=== PATIENT | male | born 1980 | race Caucasian/White ===

== ENCOUNTER 2017-10-22 15:14 | Inpatient (IN) ==
[2017-10-22 16:00] LABS: Bilirubin,Urine Negative (Negative); Blood,Urine Negative (Negative); Clarity,Urine Clear (Clear); Color,Urine Yellow (Yellow); Glucose,Urine (UA) Normal (Normal); Ketones,Urine Negative (Negative); Leukocyte Esterase,Urine Negative (Negative); Nitrite,Urine Negative (Negative); Protein,Urine Negative (Neg-Trace); Specific Gravity,Urine 1.014 (1.010-1.025); Urobilinogen,Urine Normal (Normal)
[2017-10-22 16:05] LABS: Amphetamine Screen,Urine Negative ng/mL (Cutoff=1000); Barbiturate Screen,Urine Negative ng/mL (Cutoff=200); Benzodiazepines Screen,Urine Positive ng/mL (Cutoff=200); Cannabinoid Screen,Urine Positive ng/mL (Cutoff = 50); Cocaine Screen,Urine Negative ng/mL (Cutoff= 300); Opiate Screen,Urine Negative ng/mL (Cutoff=300); Phencyclidine Screen,Urine Negative ng/mL (Cutoff=25)
[2017-10-22 16:25] LABS: Basophils % 0.5 %; Eosinophils # 0.1 K/mcL (0.0-0.6); Eosinophils % 1.5 %; Hematocrit 47.6 % (37.5-50.1); Hemoglobin 15.6 g/dL (12.9-16.9); Immature Granulocytes % 0.4 % (0-4); Lymphocytes # 2.4 K/mcL (0.6-4.6); Lymphocytes % 27.9 %; Mean Corpuscular HGB Conc 32.8 g/dL (31.6-35.5); Mean Corpuscular Hemoglobin 30.6 pg (28.0-33.3); Mean Corpuscular Volume 93.3 fL (83.0-100.0); Mean Platelet Volume 11.7 fL (9.4-12.4); Monocytes # 0.4 K/mcL (0.0-1.3); Monocytes % 4.5 %; Neutrophils # 5.6 K/mcL (1.6-8.9); Platelet Count 190 K/mcL (140-400); Red Cell Distribution Width 12.5 % (11.5-14.5); Segmented Neutrophils % 65.2 %
[2017-10-22 16:31] LABS: BUN/Creatinine Ratio 12 (6-26); Blood Urea Nitrogen 10 mg/dL (6-20); Calcium 9.2 mg/dL (8.6-10.3); Carbon Dioxide 29 mEq/L (23-29); Chloride 107 mEq/L (98-107); Glucose 77 mg/dL (70-105); Osmolality,Calculated 286 (280-300); Potassium 3.7 mEq/L (3.5-5.1); Sodium 139 mEq/L (136-145); eGFR For African Americans > 60 (> 60); eGFR For Non-African Americans > 60 (> 60)
[2017-10-22 16:36] LABS: Acetaminophen < 1.0 mcg/mL (10-30); Ethanol < 10 mg/dL (0-10); Salicylate < 5.0 mg/dL (15.0-30.0)
--- NOTE | 2017-10-22 17:35 | Emergency Department Note ---
Disposition Clinical Impression: Suicidal ideation Depression Qualifiers: Depression Type: unspecified Qualified Code(s): F32.9 - Major depressive disorder, single episode, unspecified Disposition: Admitted As Inpatient Condition: Good Referrals: NONE,PCP [Primary Care Provider] - Forms: ED Satisfaction Letter Time of Disposition: 19:00 Psych HPI - General Chief Complaint: ED Psychiatric Symptoms Stated Complaint: SI/medication issues Time Seen by Provider: 10/22/17 15:39 Source: patient Mode of arrival: ambulatory Limitations: no limitations Nursing Notes Reviewed: Yes Vital Signs Reviewed: Yes - History of Present Illness HPI Narrative: Patient presents emergency room for evaluation of suicidal ideation. Patient has been significantly depressed and not taking his medications as prescribed. Patient decided to come to the emergency room today for help. Pt complaint: suicidal ideation, feels depressed Onset (ago): day(s) Duration: constant History of similar episodes: Yes Improves with: medication Worsens with: other Context: not taking psychiatric medications, significant life stressor Alleged intoxication: No Associated Psychiatric Symptoms: depression, suicidal ideation Associated symptoms: Reports: denies other symptoms Traumatic symptoms: denies traumatic injury Treatments prior to arrival: none Self harm or harm to others: admits thoughts of self harm, has plan - Related Data Home Medications Medication Instructions Recorded Confirmed ALPRAZolam [Xanax 1 MG Tablet] 1 mg PO QID 03/14/16 04/10/16 Escitalopram [Lexapro] 20 mg PO QID 03/14/16 04/10/16 Esomeprazole Magnesium [Nexium] 40 mg PO BID 03/14/16 04/10/16 Gabapentin [Gabapentin] 800 mg PO QID 03/14/16 04/10/16 Ibuprofen [Motrin] 800 mg PO QID PRN 03/14/16 04/10/16 Mirtazapine [Mirtazapine] 15 mg PO HS 03/14/16 04/10/16 Tizanidine HCl [Tizanidine HCl] 4 mg PO BID PRN 03/14/16 04/10/16 Previous Rx's Medication Instructions Recorded Cyclobenzaprine [Flexeril] 10 mg PO TID PRN #15 tablet 04/10/16 Naproxen [Naprosyn] 500 mg PO BID PRN #30 tablet 04/10/16 Allergies Allergy/AdvReac Type Severity Reaction Status Date / Time cephalexin [From Keflex] Allergy Anaphylaxis Verified 10/22/17 15:30 sulfamethoxazole Allergy Swelling Verified 10/22/17 15:30 [From Bactrim] of Lip/Tongue/Throat trimethoprim [From Bactrim] Allergy Swelling Verified 10/22/17 15:30 of Lip/Tongue/Throat All systems ED: reviewed and negative except as stated. Review of Systems: As Per HPI Constitutional: Denies: fever Cardiovascular: Denies: chest pain, palpitations, dyspnea on exertion Respiratory: Denies: dyspnea, wheezes Gastrointestinal: Denies: abdominal pain Musculoskeletal: Denies: back pain, neck pain Neurological: Denies: headache Endocrine: Denies: fatigue Past Medical History - Past Medical History Attestation: Yes The following information was validated with the patient. Source: patient Medical history: Reports: GERD Psychiatric history: Reports: anxiety, depression, prior suicide attempt, previous psychiatric hospitalization - Social History Smoking Status: Current every day smoker Smokeless Tobacco Status: Yes Alcohol use: Reports: heavy, recent Drug use: Reports: marijuana Physical Exam - General Limitations: no limitations General appearance: alert - Head Head exam: atraumatic, normocephalic, normal inspection - Neck Neck exam: Present: normal inspection, full ROM, trachea midline - Respiratory Respiratory exam: Present: normal lung sounds bilaterally - Cardiovascular Cardiovascular exam: Present: regular rate, normal rhythm, normal heart sounds - Back Exam Back exam: Present: normal inspection, full ROM. Absent: tenderness - Neurological Exam Neurological exam: Present: alert, oriented X3, CN II-XII intact, normal gait - Psychiatric Psychiatric exam: Present: normal affect, depressed, suicidal ideation - Skin Skin exam: Present: warm, dry, intact, normal color Course Course Narrative: Patient seen and examined the time of arrival. See history of present illness. 36-year-old male presents emergency room with suicidal ideation. Patient is planned on to grow much medications to kill himself. He took several Ativan prior to coming in secondary to some stress. Patient says it is been trying to take his home medications with abdomen the not helping related to typically do for his depression. Patient says that he has significant life stressor including the possibility of losing his house. Patient denies any other medical issues this time. No chest pain or shortness of breath no fevers chills nausea vomiting or diarrhea. Medical clearance to be completed. Patient with psychiatric evaluation completed after that. No acute findings on physical exam. Patient is resting comfortably in the bed with clear lungs hepatojugular another set to trauma history. - Reevaluation(s) Reevaluation #1: Medical clearance completed at this time. Patient does have benzodiazepine and marijuana system as he disclosed. Patient will be evaluated by the psychiatric team at this time. Time: 17:39 Reevaluation #2: Patient will be admitted to psychiatric floor at this time. Time: 18:48 Vital Signs Temperature 97.9 F 10/22/17 15:32 Pulse Rate 85 10/22/17 15:32 Respiratory Rate 20 10/22/17 15:32 Blood Pressure 119/78 10/22/17 15:32 O2 Sat by Pulse Oximetry 99 10/22/17 15:32 Temperature 97.9 F 10/22/17 15:32 Pulse Rate 85 10/22/17 15:32 Respiratory Rate 20 10/22/17 15:32 Blood Pressure 119/78 10/22/17 15:32 O2 Sat by Pulse Oximetry 99 10/22/17 15:32 Oxygen Delivery Oxygen Delivery Room Air Psych - MDM Narrative Medical decision making narrative: Suicidal Ideation, depression - Medical Records Medical records reviewed: Yes I reviewed the patient's medical records. - Lab Data Lab results reviewed: Yes I reviewed the patient's lab results. Result diagrams: 10/22/17 15:56 10/22/17 15:56 Lab Results 10/22/17 10/22/17 10/22/17 Range/Units 15:45 15:45 15:56 WBC 8.5 (4.3-11.1) K/mcL RBC 5.10 (4.19-5.50) M/mcL Hgb 15.6 (12.9-16.9) g/dL Hct 47.6 (37.5-50.1) % MCV 93.3 (83.0-100.0) fL MCH 30.6 (28.0-33.3) pg MCHC 32.8 (31.6-35.5) g/dL RDW 12.5 (11.5-14.5) % Plt Count 190 (140-400) K/mcL MPV 11.7 (9.4-12.4) fL Immature Gran % 0.4 (0-4) % Seg Neutrophils % 65.2 % Lymphocytes % 27.9 % Monocytes % 4.5 % Eosinophils % 1.5 % Basophils % 0.5 % Neutrophils # 5.6 (1.6-8.9) K/mcL Lymphocytes # 2.4 (0.6-4.6) K/mcL Monocytes # 0.4 (0.0-1.3) K/mcL Eosinophils # 0.1 (0.0-0.6) K/mcL Basophils # 0.0 (0.0-0.2) K/mcL Sodium (136-145) mEq/L Potassium (3.5-5.1) mEq/L Chloride (98-107) mEq/L Carbon Dioxide (23-29) mEq/L BUN (6-20) mg/dL Creatinine (0.70-1.30) mg/dL Est GFR ( Amer) (> 60) Est GFR (Non-Af Amer) (> 60) BUN/Creatinine Ratio (6-26) Glucose (70-105) mg/dL Calculated Osmolality (280-300) Calcium (8.6-10.3) mg/dL Urine Color Yellow (Yellow) Urine Clarity Clear (Clear) Urine pH 6.0 (5.0-8.0) pH Units Ur Specific [place] 1.014 (1.010-1.025) Urine Protein Negative (Neg-Trace) mg/dL Urine Glucose (UA) Normal (Normal) mg/dL Urine Ketones Negative (Negative) mg/dL Urine Blood Negative (Negative) Urine Nitrite Negative (Negative) Urine Bilirubin Negative (Negative) Urine Urobilinogen Normal (Normal) mg/dL Ur Leukocyte Esterase Negative (Negative) Salicylates (15.0-30.0) mg/dL Urine Opiates Screen Negative (Votekt=850) ng/mL Acetaminophen (10-30) mcg/mL Ur Barbiturates Screen Negative (Rdqwvs=141) ng/mL Ur Phencyclidine Scrn Negative (Cutoff=25) ng/mL Ur Amphetamines Screen Negative (Cozqgx=5548) ng/mL U Benzodiazepines Scrn Positive H (Hboiff=259) ng/mL Urine Cocaine Screen Negative (Cutoff= 300) ng/mL U Marijuana (THC) Screen Positive H (Cutoff = 50) ng/mL Ethyl Alcohol (0-10) mg/dL 10/22/17 Range/Units 15:56 WBC (4.3-11.1) K/mcL RBC (4.19-5.50) M/mcL Hgb (12.9-16.9) g/dL Hct (37.5-50.1) % MCV (83.0-100.0) fL MCH (28.0-33.3) pg MCHC (31.6-35.5) g/dL RDW (11.5-14.5) % Plt Count (140-400) K/mcL MPV (9.4-12.4) fL Immature Gran % (0-4) % Seg Neutrophils % % Lymphocytes % % Monocytes % % Eosinophils % % Basophils % % Neutrophils # (1.6-8.9) K/mcL Lymphocytes # (0.6-4.6) K/mcL Monocytes # (0.0-1.3) K/mcL Eosinophils # (0.0-0.6) K/mcL Basophils # (0.0-0.2) K/mcL Sodium 139 (136-145) mEq/L Potassium 3.7 (3.5-5.1) mEq/L Chloride 107 (98-107) mEq/L Carbon Dioxide 29 (23-29) mEq/L BUN 10 (6-20) mg/dL Creatinine 0.81 (0.70-1.30) mg/dL Est GFR ( Amer) > 60 (> 60) Est GFR (Non-Af Amer) > 60 (> 60) BUN/Creatinine Ratio 12 (6-26) Glucose 77 (70-105) mg/dL Calculated Osmolality 286 (280-300) Calcium 9.2 (8.6-10.3) mg/dL Urine Color (Yellow) Urine Clarity (Clear) Urine pH (5.0-8.0) pH Units Ur Specific [place] (1.010-1.025) Urine Protein (Neg-Trace) mg/dL Urine Glucose (UA) (Normal) mg/dL Urine Ketones (Negative) mg/dL Urine Blood (Negative) Urine Nitrite (Negative) Urine Bilirubin (Negative) Urine Urobilinogen (Normal) mg/dL Ur Leukocyte Esterase (Negative) Salicylates < 5.0 L (15.0-30.0) mg/dL Urine Opiates Screen (Szjumm=152) ng/mL Acetaminophen < 1.0 L (10-30) mcg/mL Ur Barbiturates Screen (Uriaxv=445) ng/mL Ur Phencyclidine Scrn (Cutoff=25) ng/mL Ur Amphetamines Screen (Iouxak=4471) ng/mL U Benzodiazepines Scrn (Eigsdv=055) ng/mL Urine Cocaine Screen (Cutoff= 300) ng/mL U Marijuana (THC) Screen (Cutoff = 50) ng/mL Ethyl Alcohol < 10 (0-10) mg/dL Psychiatric Medical Clearance - Medical Clearance Checklist Does the patient have a NEW psychiatric condition?: No Any abnormalities indicating possible medical illness?: No Any history of medical issues?: No Medical History: Depression (Acute) Suicidal ideation (Acute) Abscess of skin or subcutaneous tissue (Inactive) Acute psychosis (Inactive) Homicidal ideation (Inactive) Marijuana abuse (Inactive) Strain of neck muscle (Inactive) Suicidal ideation (Inactive) No Social History Section defined Any abnormal vital signs prior to transfer?: No Current Vitals: Last Vital Signs Temp 97.9 F 10/22/17 15:32 Pulse 85 10/22/17 15:32 Resp 20 10/22/17 15:32 BP 119/78 10/22/17 15:32 Pulse Ox 99 10/22/17 15:32 Is the patient intoxicated or cognitively impaired?: No Psychiatric Lab Panel: Drug Levels and Toxicity 10/22/17 10/22/17 15:45 15:56 Urine Opiates Screen Negative Acetaminophen < 1.0 L Ur Barbiturates Screen Negative Ur Phencyclidine Scrn Negative Ur Amphetamines Screen Negative U Benzodiazepines Scrn Positive H Urine Cocaine Screen Negative U Marijuana (THC) Screen Positive H Ethyl Alcohol < 10 Any abnormalities on the physical exam?: No Any abnormal labs?: No Abnormal Labs: Abnormal lab results Salicylates < 5.0 mg/dL (15.0-30.0) L 10/22/17 15:56 Acetaminophen < 1.0 mcg/mL (10-30) L 10/22/17 15:56 U Benzodiazepines Scrn Positive ng/mL (Vouzfb=102) H 10/22/17 15:45 U Marijuana (THC) Screen Positive ng/mL (Cutoff = 50) H 10/22/17 15:45 Does the patient require durable medical equiptment?: No Is the patient ambulatory?: Yes Is the patient a fall risk?: No Has the patient been medically cleared?: Yes Statement of Medical Clearance: I have evaluated the patient, reviewed diagnostic information, and certify that the patient's medical condition is sufficiently stable that transfer to the psychiatric unit does not pose a significant risk of deterioration.
[2017-10-22] MEDS ORDERED: MOM Conc 10 ML UD.LIQ PO PRN (20:57)
[2017-10-22] MEDS ORDERED: Haloperidol Lactate 5 MG/ML VIAL IM PRN (20:57)
[2017-10-22] MEDS ORDERED: Mag Hydrox/Al Hydrox/Simeth 30 ML UDC PO PRN (20:57)
[2017-10-22] MEDS ORDERED: Nicotine 2 MG GUM BC PRN (21:10)
[2017-10-22] MEDS: traZODone 50 MG TABLET PO SCH (22:07)
[2017-10-22] MEDS: Acetaminophen 325 MG TABLET PO PRN (22:08)
[2017-10-22] MEDS: hydrOXYzine pamoate 25 MG CAPSULE PO PRN (22:08)
[2017-10-22] MEDS: Gabapentin 400 MG CAPSULE PO SCH (22:08)
[2017-10-23] MEDS: Acetaminophen 325 MG TABLET PO PRN (07:37)
[2017-10-23] MEDS: Gabapentin 400 MG CAPSULE PO SCH ×3 (08:18→21:08)
[2017-10-23] MEDS: ALPRAZolam 1 MG TABLET PO SCH ×3 (08:18→21:07)
[2017-10-23] MEDS: Fluticasone Propionate Nasal 50 MCG/SPRAY BOTTLE NS SCH (08:28)
[2017-10-23] MEDS ORDERED: ARIPiprazole 10 MG TABLET PO SCH (09:00)
[2017-10-23] MEDS: Nicotine 21 MG PATCH.TD24 TD SCH (10:49)
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
[2017-10-23] MEDS: Ibuprofen 800 MG TABLET PO PRN (17:55)
[2017-10-23] MEDS: hydrOXYzine pamoate 25 MG CAPSULE PO PRN (17:55)
[2017-10-23] MEDS: traZODone 50 MG TABLET PO SCH (21:05)
[2017-10-24] MEDS: Fluticasone Propionate Nasal 50 MCG/SPRAY BOTTLE NS SCH (08:25)
[2017-10-24] MEDS: Gabapentin 400 MG CAPSULE PO SCH ×3 (08:26→21:05)
[2017-10-24] MEDS: hydrOXYzine pamoate 25 MG CAPSULE PO PRN ×2 (08:26→21:04)
[2017-10-24] MEDS: ALPRAZolam 1 MG TABLET PO SCH ×3 (08:26→21:06)
[2017-10-24] MEDS: Ibuprofen 800 MG TABLET PO PRN ×2 (08:27→15:33)
[2017-10-24] MEDS: Nicotine 21 MG PATCH.TD24 TD SCH (08:27)
--- NOTE | 2017-10-24 10:23 | Psychiatry Progress Note ---
Date of Encounter: 10/24/17 Time of Encounter: 10:00 Subjective Interval history: I met with the patient today and asked him how he was he stated, "fine, how are you?" He told me he slept last night, the best he slept a while. Nursing reported that he slept 7.5 hours. He told me that sounded accurate. He is still feeling physically slow and depressed. But he is feeling physically much calmer and not agitated like he was on the Abilify. He still has stress in his life, worrying about his finances and work. We discussed how his medications that he takes for pain management, including 4800 mg Neurontin, might physically be slowing him down and making an physically feel depressed. At this point time he does not want to change any other medications, but just see how he does off of his Abilify. He is not actively suicidal, but does not feel he wouldn't necessarily be safe to be released that without improving coping skills and ability to deal with the stress. Fear that he may get suicidal again. There are no auditory or visual hallucinations. There is no sign of psychosis. Review of Systems Psychiatric: Reports: depression, anxiety, abnormal sleep pattern, suicidal ideation, hopelessness, irritability, mood swings Objective: Exam Patient orientation: Yes Person, Yes Time, Yes Place, Yes Circumstance Level of alertness: Alert Patient appearance: Appropriate Behavior: calm, cooperative Psychomotor activity: Slowed Eye contact: Maintains Eye Contact Mood description: Depressed Affect description: congruent with mood Speech pattern: Normal rate, Normal rhythm, Normal tone Speech volume: Normal Thought process: Intact, Linear, Goal Oriented Thought content: Yes Suicidal ideation (dissipated, more hopeful) Judgment: Fair Insight: Partial Results - Vital Signs Vital Signs: Temp Pulse Resp BP Pulse Ox 97.4 F L 78 14 121/78 99 10/24/17 09:00 10/24/17 09:00 10/24/17 09:00 10/24/17 09:00 10/22/17 15:32 Assessment and Plan (1) Depression Current visit: Yes Status: Acute Plan: Continue hospitalization, Close observation, Suicide Precautions per unit protocol, Encourage participation in unit milieu, Group Therapy, Monitor sleep Risks, benefits, side effects, alternatives discussed w/pt: Yes (Stop Abilify as it may be causing agiation) Patient agreeable to treatment: Yes Qualifiers: Depression Type: unspecified Qualified Code(s): F32.9 - Major depressive disorder, single episode, unspecified (2) Neuroleptic-induced acute akathisia Current visit: Yes Status: Acute Plan: Close observation Risks, benefits, side effects, alternatives discussed w/pt: Yes (Improved) Patient agreeable to treatment: Yes (3) Polypharmacy Current visit: Yes Status: Acute Risks, benefits, side effects, alternatives discussed w/pt: Yes (Discussed refining his medications and maximizing meds used) Patient agreeable to treatment: Yes (4) Benzodiazepine dependence Current visit: Yes Status: Acute Risks, benefits, side effects, alternatives discussed w/pt: Yes (Rule Out) Patient agreeable to treatment: Yes (He is not sure he agrees, Amy.Will discuss without oupatient doc) Consult Discharge Plan - Plan Referrals: [facility] [Outside] - 12/16/17 4:40 pm (The above appointment is with Dr. Paris for outpatient psychiatric assessment and medication management services. This is the first available appointment. You may contact the office regularly to check for cancellations that may allow you to be seen sooner.) [facility] [Outside] - 10/30/17 3:30 pm (The above appointment is with Tamara Lloyd. When you come to your first appointment, you will be completing paperwork, meeting with a counselor, and developing a treatment plan. You will receive follow- up appointments for on-going services, which could include community support, mental health and substance abuse counseling, groups/partial hospitalization programming and medication assisted treatment. Please note, you will receive a new patient packet in the mail. Please complete that to the best of your ability and bring it with you to your first appointment. You will also need to bring the following to your first appointment as well: 1) proof of household income (two consecutive pay stubs, social security award letter, bank statement, statement letter from [facility], child support statement, IRS 1040 or W2 form, or a statement from the person who financially supports you stating they help provide for your basic needs), 2 ) proof of residency (drivers license, a piece of mail showing your address, a statement from person you live with verifying you live at their address), 3) your social security card, 4) photo ID, 5) your insurance card (if you have commercial insurance you must call to obtain a prior authorization number before you arrive to your first appointment) and 6) if you do not have insurance but have applied for Medicaid, please bring verification you have applied. The above appointment(s) reflects first availability. You may contact the office regularly to check for cancellations that may allow you to be seen sooner.)
[2017-10-24] MEDS: traZODone 50 MG TABLET PO SCH (21:06)
[2017-10-25] MEDS: hydrOXYzine pamoate 25 MG CAPSULE PO PRN ×2 (03:39→12:46)
[2017-10-25] MEDS: Gabapentin 400 MG CAPSULE PO SCH ×3 (08:41→21:31)
[2017-10-25] MEDS: ALPRAZolam 1 MG TABLET PO SCH ×3 (08:42→21:31)
[2017-10-25] MEDS: Nicotine 21 MG PATCH.TD24 TD SCH (08:42)
[2017-10-25] MEDS: Fluticasone Propionate Nasal 50 MCG/SPRAY BOTTLE NS SCH (08:43)
[2017-10-25] MEDS: Ibuprofen 800 MG TABLET PO PRN ×2 (08:46→16:39)
--- NOTE | 2017-10-25 13:04 | Discharge Summary ---
Date of Encounter: 10/25/17 Time of Encounter: 13:00 Diagnosis - Discharge Diagnosis (1) Depression Status: Acute (2) Neuroleptic-induced acute akathisia Status: Acute (3) Polypharmacy Status: Acute (4) Benzodiazepine dependence Status: Acute Medications - Discharge Medications ALPRAZolam [Xanax 1 MG Tablet] 1 mg PO TID 03/14/16 [History] Escitalopram [Lexapro] 20 mg PO DAILY 03/14/16 [History] Esomeprazole Magnesium [Nexium] 40 mg PO BID 03/14/16 [History] Gabapentin [Gabapentin] 800 mg PO BID 03/14/16 [History] ARIPiprazole [Abilify] 10 mg PO DAILY 10/22/17 [History] Cetirizine HCl [Zyrtec] 10 mg PO DAILY 10/22/17 [History] Fluticasone Propionate Nasal [Flonase] 100 mcg NS DAILY 10/22/17 [History] Gabapentin [Neurontin] 1,600 mg PO HS 10/22/17 [History] Trazodone HCl 100 mg PO HS 10/22/17 [History] 3 Allergy/AdvReac Type Severity Reaction Status Date / Time cephalexin [From Keflex] Allergy Anaphylaxis Verified 10/22/17 15:30 sulfamethoxazole Allergy Swelling Verified 10/22/17 15:30 [From Bactrim] of Lip/Tongue/Throat trimethoprim [From Bactrim] Allergy Swelling Verified 10/22/17 15:30 of Lip/Tongue/Throat Provider Date of admission: 10/22/17 18:47 Primary care physician: PCP NONE Assessment and Plan - Follow up Plan Follow up with: [facility] [Outside] - 12/16/17 4:40 pm (The above appointment is with Dr. Paris for outpatient psychiatric assessment and medication management services. This is the first available appointment. You may contact the office regularly to check for cancellations that may allow you to be seen sooner.) [facility] [Outside] - 10/30/17 3:30 pm (The above appointment is with Tamara Lloyd. When you come to your first appointment, you will be completing paperwork, meeting with a counselor, and developing a treatment plan. You will receive follow- up appointments for on-going services, which could include community support, mental health and substance abuse counseling, groups/partial hospitalization programming and medication assisted treatment. Please note, you will receive a new patient packet in the mail. Please complete that to the best of your ability and bring it with you to your first appointment. You will also need to bring the following to your first appointment as well: 1) proof of household income (two consecutive pay stubs, social security award letter, bank statement, statement letter from [facility], child support statement, IRS 1040 or W2 form, or a statement from the person who financially supports you stating they help provide for your basic needs), 2 ) proof of residency (drivers license, a piece of mail showing your address, a statement from person you live with verifying you live at their address), 3) your social security card, 4) photo ID, 5) your insurance card (if you have commercial insurance you must call to obtain a prior authorization number before you arrive to your first appointment) and 6) if you do not have insurance but have applied for Medicaid, please bring verification you have applied. The above appointment(s) reflects first availability. You may contact the office regularly to check for cancellations that may allow you to be seen sooner.) Hospital Course Hospital course: Mr. Raymond is a 37 year old male - Time Spent with Patient Total time spent providing and/or coordinating discharge services:
--- NOTE | 2017-10-25 14:33 | Psychiatry Progress Note ---
Date of Encounter: 10/25/17 Time of Encounter: 13:00 Subjective Interval history: Patient tells me he is "tired". He only slept 2 to 3 hours last night. He did attend a lot of coping groups yesterday and did as much work on his issues in the groups as he possibly could. He states his mood is feeling anxious and unstable. Trazodone did not help with his sleep. He has been on 100 mg po for a long time. He wants to try something else. I discussed with him being off the Abilify, potentially using Seroquel 50 mg to help with mood and also help with his sleep. I had concerns over adding another medication and discussed further his large dose of Neurontin. The Neurontin may need to be decreased down to 800 mg at bedtime. I asked him about his agitation anxiety, he told me it was "not near as bad". He denied any active suicidal/homicidal ideation. He denied any auditory or visual hallucinations. He would like to try do a trial dose of Seroquel tonight to see if it helps with asleep. I will stop trazodone (avoiding polypharmacy) and start Seroquel 50 mg PO QHS targeting his mood and sleep. Review of Systems Psychiatric: Reports: depression, anxiety, abnormal sleep pattern, suicidal ideation, hopelessness, irritability, mood swings Objective: Exam Patient orientation: Yes Person, Yes Time, Yes Place, Yes Circumstance Level of alertness: Sedated Patient appearance: Appropriate, Unkempt (mildly) Behavior: calm Psychomotor activity: Slowed Eye contact: Maintains Eye Contact Mood description: Depressed Affect description: congruent with mood, flat Speech pattern: Normal rate, Normal rhythm, Normal tone Speech volume: Normal Thought process: Intact, Linear, Goal Oriented Thought content: Yes Intact Judgment: Fair Insight: Partial Results - Vital Signs Vital Signs: Temp Pulse Resp BP Pulse Ox 97 F L 69 18 131/85 99 10/25/17 09:00 10/25/17 09:00 10/25/17 09:00 10/25/17 09:00 10/22/17 15:32 Assessment and Plan (1) Depression Current visit: Yes Status: Acute Plan: Continue hospitalization, Close observation, Suicide Precautions per unit protocol, Encourage participation in unit milieu, Group Therapy, Monitor sleep Risks, benefits, side effects, alternatives discussed w/pt: Yes (considering a decrease in Xanax; blunting him. ? increase anxiety/withdraw?) Patient agreeable to treatment: Yes Qualifiers: Depression Type: unspecified Qualified Code(s): F32.9 - Major depressive disorder, single episode, unspecified (2) Neuroleptic-induced acute akathisia Current visit: Yes Status: Acute Risks, benefits, side effects, alternatives discussed w/pt: Yes (Resolving) Patient agreeable to treatment: Yes (3) Polypharmacy Current visit: Yes Status: Acute Risks, benefits, side effects, alternatives discussed w/pt: Yes (Discussed refining his medications and maximizing meds used) Patient agreeable to treatment: Yes (4) Benzodiazepine dependence Current visit: Yes Status: Acute Risks, benefits, side effects, alternatives discussed w/pt: Yes (Rule Out) Patient agreeable to treatment: Yes (He is not sure he agrees, Xanax.Will discuss without oupatient doc) Consult Discharge Plan - Plan Referrals: [facility] [Outside] - 12/16/17 4:40 pm (The above appointment is with Dr. Paris for outpatient psychiatric assessment and medication management services. This is the first available appointment. You may contact the office regularly to check for cancellations that may allow you to be seen sooner.) [facility] [Outside] - 10/30/17 3:30 pm (The above appointment is with Tamara Lloyd. When you come to your first appointment, you will be completing paperwork, meeting with a counselor, and developing a treatment plan. You will receive follow- up appointments for on-going services, which could include community support, mental health and substance abuse counseling, groups/partial hospitalization programming and medication assisted treatment. Please note, you will receive a new patient packet in the mail. Please complete that to the best of your ability and bring it with you to your first appointment. You will also need to bring the following to your first appointment as well: 1) proof of household income (two consecutive pay stubs, social security award letter, bank statement, statement letter from [facility], child support statement, IRS 1040 or W2 form, or a statement from the person who financially supports you stating they help provide for your basic needs), 2 ) proof of residency (drivers license, a piece of mail showing your address, a statement from person you live with verifying you live at their address), 3) your social security card, 4) photo ID, 5) your insurance card (if you have commercial insurance you must call to obtain a prior authorization number before you arrive to your first appointment) and 6) if you do not have insurance but have applied for Medicaid, please bring verification you have applied. The above appointment(s) reflects first availability. You may contact the office regularly to check for cancellations that may allow you to be seen sooner.)
[2017-10-26] MEDS: hydrOXYzine pamoate 25 MG CAPSULE PO PRN ×2 (02:39→12:35)
[2017-10-26] MEDS: Ibuprofen 800 MG TABLET PO PRN ×2 (04:55→17:39)
[2017-10-26] MEDS: Gabapentin 400 MG CAPSULE PO SCH ×3 (08:59→20:18)
[2017-10-26] MEDS: ALPRAZolam 1 MG TABLET PO SCH ×3 (08:59→20:19)
[2017-10-26] MEDS: Fluticasone Propionate Nasal 50 MCG/SPRAY BOTTLE NS SCH (09:00)
[2017-10-26] MEDS: Nicotine 21 MG PATCH.TD24 TD SCH (09:00)
--- NOTE | 2017-10-26 10:44 | Psychiatry Progress Note ---
Date of Encounter: 10/26/17 Time of Encounter: 10:30 Subjective Interval history: Patient states that he fell asleep really well last night after taken the dose of Seroquel 50 mg. He states he slept for about 4 hours solid, felt rested them. He states that he woke up about 3 o'clock in the morning with sweats again and anxiety. This is routine for him. I talked to him about the time frame that he typically takes Xanax which is about 9 o'clock. I talked to him about this reoccurrence in this timeframe (6 hours) that most likely his body physically starts going through withdrawal from the Xanax. He verbalizes understanding and agrees. "It only makes sense." He states a lot of his irritability during the day is gone. He believes that he was having side effects of the Abilify. His depression is lifting slowly, his irritability is gone, but still has anxiety at times which is most likely related to benzodiazepine withdrawal. It appears his outpatient doctor started tapering off the benzodiazepines. I spoke to him about the need to talk to his doctor further about this and to continue to work with them to taper off. Patient has had a history of addiction problems in the past, but was able to taper off opiates and has done fine for years. He thinks he can do the same with the benzodiazepines. Review of Systems Psychiatric: Reports: depression, anxiety, abnormal sleep pattern, suicidal ideation, hopelessness, irritability, mood swings Objective: Exam Patient orientation: Yes Person, Yes Time, Yes Place, Yes Circumstance Level of alertness: Alert Patient appearance: Appropriate, Well Groomed Behavior: calm, cooperative Psychomotor activity: Slowed Eye contact: Maintains Eye Contact Mood description: Euthymic/stable Affect description: congruent with mood Speech pattern: Normal rate, Normal rhythm, Normal tone, Appropriate Speech volume: Soft/Quiet Thought process: Intact, Logical, Linear, Goal Oriented Thought content: Yes Intact Judgment: Fair Insight: Partial Results - Vital Signs Vital Signs: Temp Pulse Resp BP Pulse Ox 97.6 F 65 20 113/73 99 10/26/17 09:00 10/26/17 09:00 10/26/17 09:00 10/26/17 09:00 10/22/17 15:32 Assessment and Plan (1) Depression Current visit: Yes Status: Acute Plan: Continue hospitalization, Close observation Risks, benefits, side effects, alternatives discussed w/pt: Yes (considering a decrease in Xanax; blunting him. ? increase anxiety/withdraw?) Patient agreeable to treatment: Yes (2) Neuroleptic-induced acute akathisia Current visit: Yes Status: Acute Risks, benefits, side effects, alternatives discussed w/pt: Yes (Resolved) Patient agreeable to treatment: Yes (3) Polypharmacy Current visit: Yes Status: Acute Risks, benefits, side effects, alternatives discussed w/pt: Yes (Discussed refining his medications and maximizing meds used) Patient agreeable to treatment: Yes (4) Benzodiazepine dependence Current visit: Yes Status: Acute Risks, benefits, side effects, alternatives discussed w/pt: Yes (Most likely causing his sleep disturbance.) Patient agreeable to treatment: Yes (He is in agreement, typically wakes up ever night after 6 hours. Withdrawa) Consult Discharge Plan - Plan Referrals: [facility] [Outside] - 12/16/17 4:40 pm (The above appointment is with Dr. Paris for outpatient psychiatric assessment and medication management services. This is the first available appointment. You may contact the office regularly to check for cancellations that may allow you to be seen sooner.) [facility] [Outside] - 10/30/17 3:30 pm (The above appointment is with Tamara Lloyd. When you come to your first appointment, you will be completing paperwork, meeting with a counselor, and developing a treatment plan. You will receive follow- up appointments for on-going services, which could include community support, mental health and substance abuse counseling, groups/partial hospitalization programming and medication assisted treatment. Please note, you will receive a new patient packet in the mail. Please complete that to the best of your ability and bring it with you to your first appointment. You will also need to bring the following to your first appointment as well: 1) proof of household income (two consecutive pay stubs, social security award letter, bank statement, statement letter from [facility], child support statement, IRS 1040 or W2 form, or a statement from the person who financially supports you stating they help provide for your basic needs), 2 ) proof of residency (drivers license, a piece of mail showing your address, a statement from person you live with verifying you live at their address), 3) your social security card, 4) photo ID, 5) your insurance card (if you have commercial insurance you must call to obtain a prior authorization number before you arrive to your first appointment) and 6) if you do not have insurance but have applied for Medicaid, please bring verification you have applied. The above appointment(s) reflects first availability. You may contact the office regularly to check for cancellations that may allow you to be seen sooner.)
[2017-10-27] MEDS: hydrOXYzine pamoate 25 MG CAPSULE PO PRN ×2 (02:27→12:48)
[2017-10-27] MEDS: Nicotine 21 MG PATCH.TD24 TD SCH (08:08)
[2017-10-27] MEDS: ALPRAZolam 1 MG TABLET PO SCH (08:09)
[2017-10-27] MEDS: Gabapentin 400 MG CAPSULE PO SCH ×3 (08:09→20:42)
[2017-10-27] MEDS: Fluticasone Propionate Nasal 50 MCG/SPRAY BOTTLE NS SCH (08:10)
--- NOTE | 2017-10-27 12:10 | Psychiatry Progress Note ---
Date of Encounter: 10/27/17 Time of Encounter: 09:45 Subjective Interval history: Patient seen this morning in the office. He was evaluated by a multidisciplinary treatment during rounds. He was calm, cooperative and well related. He reported doing better and sleeping much better with recent increase dose od Serouqul. He continue to endorse signifcant withdrawal symptoms early in the morning due t recent decrease dose and tolerance to Xanax. Patient reported good effect of PRN Vistaril during the day. Patient agreed to a longer acting Benzodiazepine(Diazepam) to help with ongoing tolerance and withdrawals from Xanax. He reported prior good effect of Diazapam. Also reported some improvemnt in his mood symptoms since he was put on Seroquel and wish to continue with it. There were no reported incident overnight. He is compliant with his medications and denied any noted side effects. He is sleeping and eating well. On review of symptoms, he denied other mood or psychotic symptoms including AH/VH/SI/HI Review of Systems Neurological: Reports: memory loss Psychiatric: Reports: depression, anxiety, abnormal sleep pattern, hopelessness , irritability, mood swings Objective: Exam Patient orientation: Yes Person, Yes Time, Yes Place Level of alertness: Alert, Follows commands Patient appearance: Appropriate, Well Groomed, Well-nourished Behavior: calm, cooperative Psychomotor activity: Slowed Eye contact: Maintains Eye Contact Mood description: Euthymic/stable Affect description: congruent with mood Speech pattern: Slowed Speech volume: Soft/Quiet Thought process: Logical, Goal Oriented Thought content: Yes Intact Judgment: Fair Insight: Full Results - Vital Signs Vital Signs: Temp Pulse Resp BP Pulse Ox 97.1 F L 59 16 114/72 99 10/27/17 08:36 10/27/17 08:36 10/27/17 08:36 10/27/17 08:36 10/22/17 15:32 Consult Discharge Plan - Plan Referrals: [facility] [Outside] - 12/16/17 4:40 pm (The above appointment is with Dr. Paris for outpatient psychiatric assessment and medication management services. This is the first available appointment. You may contact the office regularly to check for cancellations that may allow you to be seen sooner.) [facility] [Outside] - 10/30/17 3:30 pm (The above appointment is with Tamara Lloyd. When you come to your first appointment, you will be completing paperwork, meeting with a counselor, and developing a treatment plan. You will receive follow- up appointments for on-going services, which could include community support, mental health and substance abuse counseling, groups/partial hospitalization programming and medication assisted treatment. Please note, you will receive a new patient packet in the mail. Please complete that to the best of your ability and bring it with you to your first appointment. You will also need to bring the following to your first appointment as well: 1) proof of household income (two consecutive pay stubs, social security award letter, bank statement, statement letter from [facility], child support statement, IRS 1040 or W2 form, or a statement from the person who financially supports you stating they help provide for your basic needs), 2 ) proof of residency (drivers license, a piece of mail showing your address, a statement from person you live with verifying you live at their address), 3) your social security card, 4) photo ID, 5) your insurance card (if you have commercial insurance you must call to obtain a prior authorization number before you arrive to your first appointment) and 6) if you do not have insurance but have applied for Medicaid, please bring verification you have applied. The above appointment(s) reflects first availability. You may contact the office regularly to check for cancellations that may allow you to be seen sooner.)
[2017-10-27] MEDS: diazePAM 5 MG TABLET PO SCH ×2 (14:55→20:42)
[2017-10-27] MEDS: Ibuprofen 800 MG TABLET PO PRN (17:21)
[2017-10-28] MEDS: hydrOXYzine pamoate 25 MG CAPSULE PO PRN ×3 (02:28→18:47)
[2017-10-28] MEDS: Nicotine 21 MG PATCH.TD24 TD SCH (08:21)
[2017-10-28] MEDS: Gabapentin 400 MG CAPSULE PO SCH ×3 (08:23→20:48)
[2017-10-28] MEDS: diazePAM 5 MG TABLET PO SCH ×3 (08:23→20:48)
[2017-10-28] MEDS: Fluticasone Propionate Nasal 50 MCG/SPRAY BOTTLE NS SCH (08:26)
[2017-10-28] MEDS: Ibuprofen 800 MG TABLET PO PRN ×2 (09:14→17:11)
--- NOTE | 2017-10-28 14:37 | Psychiatry Progress Note ---
Date of Encounter: 10/28/17 Time of Encounter: 14:30 Subjective Interval history: The patient reports that he had sweating and midnight awakening. This often occurred when he was on Xanax and efforts to taper the dose were associated with worsening. The tapering of the dose even lead to suicidal ideation with thoughts that he would run his car and tree. The patient agreed to go on diazepam a longer acting medicine which will help cover this but nonetheless he notes that he still has trouble falling sleep periods in the past she has been up to 1 up to 800 mg of Seroquel. He is currently on 200 mg and increased to 300. The diazepam is 5 mg 3 times a day. Patient is on rather significant amount of gabapentin and this is to help with his pain because he has had hardware placed in his back. 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 The patient has an appointment follow-up with his counselor October 30 although his psychiatrist will not be able to see him for about a month Review of Systems Constitutional: Reports: night sweats Ears, Nose, Throat: Reports: hearing loss Cardiovascular: Reports: palpitations. Denies: chest pain, dyspnea on exertion Respiratory: Denies: cough, dyspnea, wheezes Gastrointestinal: Denies: abdominal pain, nausea, vomiting, diarrhea, constipation Musculoskeletal: Reports: back pain. Denies: joint swelling, joint pain Neurological: Denies: headache, weakness, numbness, memory loss Psychiatric: Reports: depression, anxiety, abnormal sleep pattern, hopelessness , irritability, mood swings Objective: Exam Patient orientation: Yes Person, Yes Time, Yes Place Level of alertness: Sedated Patient appearance: Appropriate Behavior: cooperative Psychomotor activity: Slowed Eye contact: Maintains Eye Contact Mood description: Depressed Affect description: congruent with mood Speech pattern: Normal rate Speech volume: Soft/Quiet Thought process: Logical, Linear, Slowed Thinking Thought content: Yes Suicidal ideation Judgment: Limited Insight: Minimal Results - Vital Signs Vital Signs: Temp Pulse Resp BP Pulse Ox 98 F 79 14 132/73 99 10/28/17 10:47 10/28/17 10:47 10/28/17 10:47 10/28/17 10:47 10/22/17 15:32 - Drug Levels and Toxicology Drug Levels and Toxicology: marijuana in urine BZ D Assessment and Plan (1) Depression Current visit: Yes Status: Acute Plan: Continue hospitalization, Close observation Additional Plan: The Seroquel from 200 mg to 300 mg daily at bedtime monitor for tolerability and coordinate with discharge planning Risks, benefits, side effects, alternatives discussed w/pt: Yes (considering a decrease in Xanax; blunting him. ? increase anxiety/withdraw?) Patient agreeable to treatment: Yes Qualifiers: Depression Type: unspecified Qualified Code(s): F32.9 - Major depressive disorder, single episode, unspecified (2) Neuroleptic-induced acute akathisia Current visit: Yes Status: Resolved Plan: Continue hospitalization, Suicide Precautions per unit protocol Risks, benefits, side effects, alternatives discussed w/pt: Yes (Resolved) Patient agreeable to treatment: Yes (3) Suicidal ideation Current visit: Yes Status: Acute Plan: Continue hospitalization, Suicide Precautions per unit protocol Risks, benefits, side effects, alternatives discussed w/pt: Yes Patient agreeable to treatment: Yes Consult Discharge Plan - Plan Referrals: [facility] [Outside] - 12/16/17 4:40 pm (The above appointment is with Dr. Paris for outpatient psychiatric assessment and medication management services. This is the first available appointment. You may contact the office regularly to check for cancellations that may allow you to be seen sooner.) [facility] [Outside] - 10/30/17 3:30 pm (The above appointment is with Tamara Lloyd. When you come to your first appointment, you will be completing paperwork, meeting with a counselor, and developing a treatment plan. You will receive follow- up appointments for on-going services, which could include community support, mental health and substance abuse counseling, groups/partial hospitalization programming and medication assisted treatment. Please note, you will receive a new patient packet in the mail. Please complete that to the best of your ability and bring it with you to your first appointment. You will also need to bring the following to your first appointment as well: 1) proof of household income (two consecutive pay stubs, social security award letter, bank statement, statement letter from [facility], child support statement, IRS 1040 or W2 form, or a statement from the person who financially supports you stating they help provide for your basic needs), 2 ) proof of residency (drivers license, a piece of mail showing your address, a statement from person you live with verifying you live at their address), 3) your social security card, 4) photo ID, 5) your insurance card (if you have commercial insurance you must call to obtain a prior authorization number before you arrive to your first appointment) and 6) if you do not have insurance but have applied for Medicaid, please bring verification you have applied. The above appointment(s) reflects first availability. You may contact the office regularly to check for cancellations that may allow you to be seen sooner.)
--- NOTE | 2017-10-29 07:52 | Discharge Summary ---
Date of Encounter: 10/29/17 Time of Encounter: 07:40 Diagnosis - Discharge Diagnosis (1) Depression Status: Acute Qualifiers: Depression Type: major depressive disorder Major depression recurrence: single episode Major depression episode severity: severe Psychotic features : without psychotic features Qualified Code(s): F32.2 - Major depressive disorder, single episode, severe without psychotic features (2) Neuroleptic-induced acute akathisia Status: Resolved (3) Suicidal ideation Status: Resolved Medications - Discharge Medications Prescriptions: ALPRAZolam [Xanax 1 MG Tablet] 1 mg PO TID 30 Days #90 tablet diazePAM [Valium] 5 mg PO TID 30 Days #90 tablet Escitalopram [Lexapro] 20 mg PO DAILY 30 Days #30 tablet NS Esomeprazole Magnesium [Nexium] 40 mg PO BID 30 Days #60 capsule. Fluticasone Propionate Nasal [Flonase] 100 mcg NS DAILY 1 Days #1 bottle Gabapentin [Neurontin] 1,600 mg PO HS 30 Days #60 tablet Gabapentin [Neurontin] 800 mg PO 0900,1500 30 Days #60 capsule hydrOXYzine pamoate [HydrOXYzine Pamoate] 25 mg PO TID PRN 30 Days #90 capsule PRN Reason: Anxiety Nicotine Patch [Nicoderm] 21 mg TD DAILY 14 Days #14 patch.[email or web address] Quetiapine Fumarate [Seroquel] 300 mg PO HS 60 Days #30 tablet Trazodone HCl 100 mg PO HS 30 Days #30 tablet ARIPiprazole [Abilify] 10 mg PO DAILY 10/22/17 [History] ALPRAZolam [Xanax 1 MG Tablet] 1 mg PO TID 30 Days #90 tablet 10/29/17 [Rx] Escitalopram [Lexapro] 20 mg PO DAILY 30 Days #30 tablet NS 10/29/17 [Rx] Esomeprazole Magnesium [Nexium] 40 mg PO BID 30 Days #60 capsule. 10/29/17 [Rx ] Fluticasone Propionate Nasal [Flonase] 100 mcg NS DAILY 1 Days #1 bottle [Rx] Gabapentin [Neurontin] 1,600 mg PO HS 30 Days #60 tablet 10/29/17 [Rx] Gabapentin [Neurontin] 800 mg PO 0900,1500 30 Days #60 capsule 10/29/17 [Rx] Ibuprofen [Motrin] 800 mg PO Q8HR PRN tablet 10/29/17 [Rx] Nicotine Patch [Nicoderm] 21 mg TD DAILY 14 Days #14 patch.[email or web address] 10/29/17 [Rx] Quetiapine Fumarate [Seroquel] 300 mg PO HS 60 Days #30 tablet 10/29/17 [Rx] Trazodone HCl 100 mg PO HS 30 Days #30 tablet 10/29/17 [Rx] diazePAM [Valium] 5 mg PO TID 30 Days #90 tablet 10/29/17 [Rx] hydrOXYzine pamoate [HydrOXYzine Pamoate] 25 mg PO TID PRN 30 Days #90 capsule 10/29/17 [Rx] 3 Allergy/AdvReac Type Severity Reaction Status Date / Time cephalexin [From Keflex] Allergy Anaphylaxis Verified 10/22/17 15:30 sulfamethoxazole Allergy Swelling Verified 10/22/17 15:30 [From Bactrim] of Lip/Tongue/Throat trimethoprim [From Bactrim] Allergy Swelling Verified 10/22/17 15:30 of Lip/Tongue/Throat Provider Date of admission: 10/22/17 18:47 Primary care physician: PCP: Nellie Murcia [employer], [facility] Medicine Discharging clinician: Eric Cisse Assessment and Plan - Patient/Caregiver Discharge Instructions Activity: resume usual activities as tolerated Diet: regular diet - Follow up Plan Follow up with: [facility] [Outside] - 12/16/17 4:40 pm (The above appointment is with Dr. Paris for outpatient psychiatric assessment and medication management services. This is the first available appointment. You may contact the office regularly to check for cancellations that may allow you to be seen sooner.) [facility] [Outside] - 10/30/17 3:30 pm (The above appointment is with Tamara Lloyd. When you come to your first appointment, you will be completing paperwork, meeting with a counselor, and developing a treatment plan. You will receive follow- up appointments for on-going services, which could include community support, mental health and substance abuse counseling, groups/partial hospitalization programming and medication assisted treatment. Please note, you will receive a new patient packet in the mail. Please complete that to the best of your ability and bring it with you to your first appointment. You will also need to bring the following to your first appointment as well: 1) proof of household income (two consecutive pay stubs, social security award letter, bank statement, statement letter from [facility], child support statement, IRS 1040 or W2 form, or a statement from the person who financially supports you stating they help provide for your basic needs), 2 ) proof of residency (drivers license, a piece of mail showing your address, a statement from person you live with verifying you live at their address), 3) your social security card, 4) photo ID, 5) your insurance card (if you have commercial insurance you must call to obtain a prior authorization number before you arrive to your first appointment) and 6) if you do not have insurance but have applied for Medicaid, please bring verification you have applied. The above appointment(s) reflects first availability. You may contact the office regularly to check for cancellations that may allow you to be seen sooner.) Functional capacity at discharge: independent ambulation Overall status at discharge: patient is back to baseline Disposition: Home, Self-Care Hospital Course Hospital course: Mr. Raymond is a 37 year old male The patient was admitted to the unit. He had improvement in mood and resolution of suicidal ideation. The patient was adjusted on medicine he was taken off Abilify which caused neuroleptic-induced akathisia. This gradually resolved but still required benzodiazepines. The patient was continued on gabapentin. Seroquel was added and was increased to 300 mg. The patient reports satisfactory sleep the night before. He reported improved mood and no return of suicidal ideation. He has follow-up with his primary psychiatrist in December and with counseling October 30. He was accepting of this. Patient also wished to continue to remain free from smoking some nicotine patches for 2 weeks were continued. Patient return to his primary care nurse practitioner to further discuss medical cessation Time spent discussing smoking cessation with patient: 3 to 10 minutes Does patient wish to continue nicotine replacement upon disc: Yes - Time Spent with Patient Total time spent providing and/or coordinating discharge services: Less than 30 minutes Quality - Multiple Antipsychotics Patient discharged on 2 or more antipsychotic medications: No Procedures - Procedures Procedures: Medication Management, Supportive Therapy Mental Status Exam - Mental Status Exam Patient orientation: Yes Person, Yes Time, Yes Place, Yes Circumstance Level of alertness: Alert Patient appearance: Appropriate Behavior: calm Psychomotor activity: Slowed Eye contact: Maintains Eye Contact Mood description: Euthymic/stable Affect description: constricted Speech pattern: Appropriate, Slowed Speech Volume: Normal Thought process: Logical Thought Content: Yes Intact Judgment: Fair Insight: Partial
[2017-10-29] MEDS: Nicotine 21 MG PATCH.TD24 TD SCH (08:23)
[2017-10-29] MEDS: diazePAM 5 MG TABLET PO SCH (08:24)
[2017-10-29] MEDS: Fluticasone Propionate Nasal 50 MCG/SPRAY BOTTLE NS SCH (08:24)
[2017-10-29] MEDS: Gabapentin 400 MG CAPSULE PO SCH (08:24)
[2017-10-29 09:07] VITALS: BP 120/71
== END 2017-10-29 10:20 | disposition home or self-care (01) | DRG 885 ==
LOC: EMEROO 15:14 → 1ANU 18:47 → SUATTDRO 18:47 → 1ANU 19:00
PROVIDERS: ADMIT Psychiatry & Neurology Psychiatry; ATTEND Psychiatry & Neurology Forensic Psychiatry